=== PATIENT | female | born 1975 | race Caucasian/White ===

== ENCOUNTER 2018-03-13 19:15 | Inpatient (IN) | payer OTHER ==
[~2018-03-13] VITALS: Ht 170.2 cm; Wt 116.1 kg
--- NOTE | 2018-03-13 20:18 | NUR ---
Pt. arrived to the floor with EMS on stretcher. Pt. ambulated to the bed independently. Pt. is A&OX3, addmission assessment complete. IV to lt. forearm patent, with IF fluids and antibiotics infusing. INT to lt. upper arm patent. Pt. reports pain at a 1-2 with movement. Pt. denies need for pain medication at this time. Call light within reach.
[2018-03-13 20:20] VITALS: BP 116/75; PULSE 95; TEMP 99
[2018-03-13 22:28] LABS: HEMOGLOBIN 11.6 g/dl (12.5-16.0); MEAN CELL VOLUME 95 fl (80.0-100.0); MEAN CORPUSCULAR HEMOGLOBIN 33 pg (27.0-31.0); MEAN CORPUSCULAR HGB CONC 35 g/dl (33.0-37.0); MEAN PLATELET VOLUME 11.2 fl (7.4-10.4); PLATELET COUNT 290 K/mm3 (130-400); RED BLOOD COUNT 3.53 M/mm3 (4.10-5.30); REDCELL DISTRIBUTION WIDTH-CV 14.1 % (11.5-14.5)
[2018-03-13 22:32] LABS: HEMATOCRIT 33.6 % (37.0-47.0)
[2018-03-13 22:39] LABS: INR 1.5 (0.8-3.0); PROTHROMBIN TIME 17.5 SECONDS (9.7-12.8)
[2018-03-13 22:44] LABS: BILIRUBIN,TOTAL 0.5 mg/dL (0.0-1.0); CALCIUM 8.1 mg/dL (8.4-10.2); CREATININE, serum 0.49 mg/dL (0.52-1.25); POTASSIUM 3.1 mmol/L (3.4-5.0); TOTAL PROTEIN 6.3 gm/dL (6.4-8.2)
[2018-03-13 23:06] LABS: BAND 30 % (0-10); LYMPHOCYTE 10 % (20.0-51.0); METAMYELOCYTE 2 % (0-0); NEUTROPHILS 54 % (42.0-75.2); PLATELET ESTIMATE NORMAL (NORMAL)
[2018-03-13 23:07] LABS: ANISOCYTOSIS 1+
[2018-03-14] VITALS (15 sets, daily range): BP systolic 95–144; BP diastolic 52–88; PULSE 74–105; TEMP 98.1–100.7
[2018-03-14 05:54] LABS: HEMOGLOBIN 12.1 g/dl (12.5-16.0); MEAN CELL VOLUME 97 fl (80.0-100.0); MEAN CORPUSCULAR HEMOGLOBIN 33 pg (27.0-31.0); MEAN CORPUSCULAR HGB CONC 34 g/dl (33.0-37.0); PLATELET COUNT 311 K/mm3 (130-400); RED BLOOD COUNT 3.71 M/mm3 (4.10-5.30); REDCELL DISTRIBUTION WIDTH-CV 14.2 % (11.5-14.5)
[2018-03-14 06:07] LABS: BILIRUBIN,TOTAL 0.5 mg/dL (0.0-1.0); CALCIUM 8.3 mg/dL (8.4-10.2); CREATININE, serum 0.55 mg/dL (0.52-1.25); POTASSIUM 3.3 mmol/L (3.4-5.0); TOTAL PROTEIN 6.3 gm/dL (6.4-8.2)
[2018-03-14 07:11] LABS: BAND 33 % (0-10); LYMPHOCYTE 10 % (20.0-51.0); METAMYELOCYTE 1 % (0-0); NEUTROPHILS 48 % (42.0-75.2)
[2018-03-14 07:13] LABS: PLATELET ESTIMATE NORMAL (NORMAL)
--- NOTE | 2018-03-14 08:05 | NUR ---
Patient resting in bed. Consent obtained per orders, patient discussed previous night with . Patient Offered hygiene, she wanted to wait until after the procedure, she is a little nervous. One tab percocet for pain control with sip of water, she remains NPO. IVf per orders.José Miguel boateng
--- NOTE | 2018-03-14 09:10 | NUR ---
Patient to Radiology for drain placement. Patient up to the bathroom prior, dark soham urine. Will await her return. [employer] to change her linens.
--- NOTE | 2018-03-14 09:25 | NUR ---
pt laying in prone position on ct table, Monitors applied.
--- NOTE | 2018-03-14 09:52 | NUR ---
large amount of purulent drainage removed by Dr Peralta from pelvic abscess. 170 mls removed from pelvis.
--- NOTE | 2018-03-14 10:51 | NUR ---
Patient has returned from Radiology, Abcess drain to right buttcock to DD. Patient pain 10/10 at this time. Gave dilaudid & percocet. Patient VVS, but chills present. Family at bedside. Clear liquids offered. monitored. José Miguel boateng.
[2018-03-14 11:21] LABS: INR 1.3 (0.8-3.0); PROTHROMBIN TIME 15.1 SECONDS (9.7-12.8)
--- NOTE | 2018-03-14 12:12 | NUR ---
Patient overall reports feeling much better. Pain is better managed. Her family remains attentive at bedside.
--- NOTE | 2018-03-14 13:34 | NUR ---
GURINDER met with the patient and patient's life partner, Joselo, to discuss discharge plan. The patient lives in [place] with her life partner and works at [employer]. She reports independence with ADLs and does not use any DME. The patient does not have a PCP, but states that she would be interested in being set up with one in [place]. The patient is also self pay. GURINDER provided the patient with a list of PCP's in [place] and information on [facility]. She states she receives her medications at [facility] and that she had not had any difficulties obtaining her meds. SW has consulted financial counseling. The patient does not have advanced directives, but she was interested in obtaining the form for DPOA-HC. GURINDER provided. The patient plans to return home with her life partner upon discharge. SW to continue to follow.
[2018-03-14 16:38] LABS: COLLECTION METHOD CLEAN CATCH
[2018-03-14 17:12] LABS: MUCOUS Present /lpf; PH 5 (5-8); URINE APPEARANCE Hazy; URINE BACTERIA Rare /hpf; URINE BILIRUBIN Positive (NEGATIVE); URINE BLOOD 3+ (NEGATIVE); URINE COLOR Amber; URINE GLUCOSE Negative (NEGATIVE); URINE KETONE 1+ (NEGATIVE); URINE LEUKOCYTE ESTERASE Trace (NEGATIVE); URINE NITRATE Negative (NEGATIVE); URINE PROTEIN(semi-quant) 2+ (NEGATIVE); URINE UROBILINOGEN >=4.0 mg/dL (NEGATIVE)
--- NOTE | 2018-03-14 18:35 | NUR ---
Patient resting in bed. Hospitalist team has rounded Early afternoon, orders obtained. K+ replaced per orders & UA to Lab. Patient was up to the bathroom this afternoon & very slowly & steadly got there. Urine remains very dark soham. Abcess drain to DD with purulent output. 2 tabs percocet for pain, Patient feeling better after. Going to try jello & sprite for dinner. Will report off to night nurse
--- NOTE | 2018-03-14 22:25 | NUR ---
Patient has small amount of emesis, thinks it is from the jello. Zofran given at 2233. Patient has drainage tube to right buttock with purulent drainage in the bag. Reports pain in right leg. Lungs with exp. wheezes to upper lobes. Abdomen soft, BS active, on clear liquids. IV fluids to left forearm with noted edema, fluids stopped and IV site dc'd with angiocath intact. Has left upper SL without redness or swelling, IV antibiotics infusing without problem. Refuses SCD's.
--- NOTE | 2018-03-14 22:55 | NUR ---
Medicated with Percocet for pain 4/10 to right leg/buttock.
[2018-03-15 03:10] VITALS: BP 111/61; PULSE 95; TEMP 98.8
--- NOTE | 2018-03-15 05:37 | NUR ---
Up to bathroom with slow steady gait, voids 150cc of dark soham urine. Back to bed with supervision only. Medicated with Percocet 2 tabs for rt leg/buttock pain. IV fluids infusing to left upper arm IV site without redness or swelling.
[2018-03-15 06:49] LABS: HEMATOCRIT 34.9 % (37.0-47.0); HEMOGLOBIN 11.8 g/dl (12.5-16.0); MEAN CELL VOLUME 96 fl (80.0-100.0); MEAN CORPUSCULAR HEMOGLOBIN 32 pg (27.0-31.0); MEAN CORPUSCULAR HGB CONC 34 g/dl (33.0-37.0); MEAN PLATELET VOLUME 11.5 fl (7.4-10.4); PLATELET COUNT 318 K/mm3 (130-400); RED BLOOD COUNT 3.65 M/mm3 (4.10-5.30); REDCELL DISTRIBUTION WIDTH-CV 14.3 % (11.5-14.5)
[2018-03-15 06:56] LABS: INR 1.8 (0.8-3.0); PROTHROMBIN TIME 20.6 SECONDS (9.7-12.8)
[2018-03-15 07:05] LABS: ALBUMIN 2.7 gm/dL (3.5-5.0); BILIRUBIN,TOTAL 1.2 mg/dL (0.0-1.0); CALCIUM 8.2 mg/dL (8.4-10.2); CREATININE, serum 0.56 mg/dL (0.52-1.25); POTASSIUM 3.3 mmol/L (3.4-5.0); TOTAL PROTEIN 5.8 gm/dL (6.4-8.2)
[2018-03-15 07:14] LABS: BAND 24 % (0-10); LYMPHOCYTE 12 % (20.0-51.0); NEUTROPHILS 61 % (42.0-75.2); PLATELET ESTIMATE NORMAL (NORMAL)
[2018-03-15 07:16] LABS: STOMATOCYTE 1+
[2018-03-15 08:40] VITALS: BP 105/57; PULSE 73; TEMP 98.2
--- NOTE | 2018-03-15 10:12 | NUR ---
Patient alert and oriented, answers questions appropriately. Abscess drain in place to right buttock, drain irrigated, purulent drainage noted. C/o inability to manipulate RLE, but no c/o numbness or tingling. Pulses intact to RLE. Homans negative. No other c/o at this time
[2018-03-15 11:48] VITALS: BP 108/56; PULSE 90; TEMP 98.1
[2018-03-15 15:17] VITALS: BP 112/63; PULSE 94; TEMP 99.1
[2018-03-15 19:10] VITALS: BP 97/54; PULSE 95; TEMP 98.9
[2018-03-15 23:58] VITALS: BP 116/59; PULSE 90; TEMP 98.5
--- NOTE | 2018-03-16 01:46 | NUR ---
PATIENT UP TO BATHROOM, VOIDS DARK YELLOW URINE IN THE TOILET, REPORTS SMALL BM 03/15/18. SL TO LEFT UPPER ARM WITHOUT REDNESS OR SWELLING. DRAIN TO RIGHT BUTTOCK WITH BARNETT PURULENT DRAINAGE, 20CC EMPTIED AT THIS TIME. REMAINS ON FULL LIQUID DIET, MOTHER AT BEDSIDE.
[2018-03-16 04:23] VITALS: BP 117/60; PULSE 68; TEMP 98
[2018-03-16 06:12] LABS: HEMOGLOBIN 11.2 g/dl (12.5-16.0); MEAN CELL VOLUME 97 fl (80.0-100.0); MEAN CORPUSCULAR HEMOGLOBIN 32 pg (27.0-31.0); MEAN CORPUSCULAR HGB CONC 34 g/dl (33.0-37.0); MEAN PLATELET VOLUME 11.4 fl (7.4-10.4); PLATELET COUNT 324 K/mm3 (130-400); RED BLOOD COUNT 3.46 M/mm3 (4.10-5.30); REDCELL DISTRIBUTION WIDTH-CV 14.4 % (11.5-14.5)
[2018-03-16 06:15] LABS: INR 1.7 (0.8-3.0); PROTHROMBIN TIME 19.5 SECONDS (9.7-12.8)
[2018-03-16 06:24] LABS: HEMATOCRIT 33.4 % (37.0-47.0)
[2018-03-16 06:36] LABS: ALBUMIN 2.5 gm/dL (3.5-5.0); BILIRUBIN,TOTAL 0.6 mg/dL (0.0-1.0); CALCIUM 8.2 mg/dL (8.4-10.2); CREATININE, serum 0.56 mg/dL (0.52-1.25); POTASSIUM 3.6 mmol/L (3.4-5.0); TOTAL PROTEIN 5.5 gm/dL (6.4-8.2)
[2018-03-16 07:20] LABS: BAND 36 % (0-10); LYMPHOCYTE 11 % (20.0-51.0); NEUTROPHILS 47 % (42.0-75.2)
[2018-03-16 07:22] LABS: PLATELET ESTIMATE NORMAL (NORMAL)
[2018-03-16 07:23] LABS: STOMATOCYTE 1+
[2018-03-16 09:11] VITALS: BP 100/54; PULSE 79; TEMP 98.6
[2018-03-16 11:24] VITALS: BP 112/66; PULSE 94; TEMP 97
--- NOTE | 2018-03-16 11:56 | NUR ---
First visit from the chief of internal medicine. No needs right now.
[2018-03-16 15:53] VITALS: BP 110/70; PULSE 94; TEMP 98.7
--- NOTE | 2018-03-16 18:00 | NUR ---
Patient ambulated twice today with PT. She did not tolerate the second walk as well. Pain well controlled with percocet. Denies nausea. There has only been scant brown drainage to abscess drain today. No other changes at this time. Call light within reach.
[2018-03-16 19:49] VITALS: BP 111/61; PULSE 93; TEMP 99.1
--- NOTE | 2018-03-17 01:22 | NUR ---
Patient remains awake, is NPO for CT scan in AM. Had Percocet 5/325mg 2 tabs at 2300 for rt leg and buttock pain. Patient reports apprehension for CT scan and possible movement of the abscess drain. SL to left upper arm intact. Encouraged patient to rest.
[2018-03-17 03:39] VITALS: BP 106/63; PULSE 73; TEMP 98.2
[2018-03-17 05:57] LABS: HEMOGLOBIN 11.3 g/dl (12.5-16.0); MEAN CELL VOLUME 97 fl (80.0-100.0); MEAN CORPUSCULAR HEMOGLOBIN 32 pg (27.0-31.0); MEAN CORPUSCULAR HGB CONC 33 g/dl (33.0-37.0); MEAN PLATELET VOLUME 11.4 fl (7.4-10.4); PLATELET COUNT 380 K/mm3 (130-400); RED BLOOD COUNT 3.49 M/mm3 (4.10-5.30); REDCELL DISTRIBUTION WIDTH-CV 14.7 % (11.5-14.5)
[2018-03-17 05:58] LABS: HEMATOCRIT 33.8 % (37.0-47.0)
[2018-03-17 06:03] LABS: INR 1.3 (0.8-3.0); PROTHROMBIN TIME 14.5 SECONDS (9.7-12.8)
[2018-03-17 06:06] LABS: ALBUMIN 2.6 gm/dL (3.5-5.0); BILIRUBIN,TOTAL 0.4 mg/dL (0.0-1.0); CALCIUM 8.2 mg/dL (8.4-10.2); CREATININE, serum 0.55 mg/dL (0.52-1.25); POTASSIUM 3.8 mmol/L (3.4-5.0); TOTAL PROTEIN 5.8 gm/dL (6.4-8.2)
[2018-03-17 06:36] LABS: BAND 21 % (0-10); LYMPHOCYTE 21 % (20.0-51.0); METAMYELOCYTE 1 % (0-0); NEUTROPHILS 55 % (42.0-75.2)
[2018-03-17 06:37] LABS: PLATELET ESTIMATE NORMAL (NORMAL); STOMATOCYTE 1+
[2018-03-17 08:02] VITALS: BP 92/49; PULSE 80; TEMP 98.9
--- NOTE | 2018-03-17 10:45 | NUR ---
Patient came back from her procedure and is having increased pain. She has been getting percocet for pain and it helps but she said the pain is worse than before. Offered to call doctor to get more pain medications ordered and she refused. Denies nausea. Drain to dependent drainage with brown purulent drainage. No other changes at this time. Call light within reach.
[2018-03-17 11:06] VITALS: BP 109/60; PULSE 88; TEMP 97.3
[2018-03-17 16:21] VITALS: BP 123/72; PULSE 94; TEMP 98
--- NOTE | 2018-03-17 18:00 | NUR ---
Patient continues to do ok this afternoon. She had a PICC line placed for antibiotics. Patient has terrible veins and her current IV is expiring. Patient's pain is better this aftenoon. She is going to shower when her significant other gets here. No other changes at this time.
[2018-03-17 19:12] VITALS: BP 118/91; PULSE 89; TEMP 97.9
--- NOTE | 2018-03-17 21:00 | NUR ---
Patient resting in bed watching television at this time. Patient requests PRN pain medicaiton for pain/cramping in her right leg. small amount of purulent drainage in abcess drain bag. Patient up with walker and ambulating in hallway with [facility], gait is steady. Patient states that she is planning to take a shower later this evening, will call before so her drain site and PICC can be covered. Patient denies further needs at this time, call light within reach.
--- NOTE | 2018-03-17 22:30 | NUR ---
Patient took a shower with help of family member. During shower part of occlusive covering to dressing over drain site on right buttock failed, distal portion of gauze became saturated and dressing required changing after surgery. Stat lock holding drain came off and could not be replaced due to lack of supplies. Drain was coiled to prevent tension and tegaderm was applied over coil to keep it in place. Gauze and ABD dressing applied to absorb any drainage from insertion site. Patient denied further needs, call light within reach.
[2018-03-18 05:05] VITALS: BP 125/74; PULSE 73; TEMP 98.2
[2018-03-18 05:58] LABS: HEMOGLOBIN 11.2 g/dl (12.5-16.0); MEAN CELL VOLUME 97 fl (80.0-100.0); MEAN CORPUSCULAR HEMOGLOBIN 32 pg (27.0-31.0); MEAN CORPUSCULAR HGB CONC 33 g/dl (33.0-37.0); PLATELET COUNT 425 K/mm3 (130-400); RED BLOOD COUNT 3.48 M/mm3 (4.10-5.30); REDCELL DISTRIBUTION WIDTH-CV 14.9 % (11.5-14.5)
[2018-03-18 06:02] LABS: HEMATOCRIT 33.8 % (37.0-47.0)
[2018-03-18 06:11] LABS: INR 1.2 (0.8-3.0)
[2018-03-18 06:12] LABS: CALCIUM 8.1 mg/dL (8.4-10.2); CREATININE, serum 0.55 mg/dL (0.52-1.25); POTASSIUM 3.9 mmol/L (3.4-5.0)
--- NOTE | 2018-03-18 06:24 | NUR ---
Patient rested well overnight. Administered PRN pain medication per patient request. Patient has denied further needs, call light within reach.
[2018-03-18 07:42] LABS: BAND 27 % (0-10); LYMPHOCYTE 12 % (20.0-51.0); METAMYELOCYTE 2 % (0-0); NEUTROPHILS 57 % (42.0-75.2)
[2018-03-18 07:43] LABS: PLATELET ESTIMATE INCREASED (NORMAL)
[2018-03-18 07:53] VITALS: BP 111/66; PULSE 74; TEMP 98.1
--- NOTE | 2018-03-18 10:41 | NUR ---
Patient sitting up in bed eating a late breakfast. She was nauseated this am. Patient had Percocet early this am without food, discussed the possibilty of this making her nauseated. Zofran prn per orders. Picc line with Iv antibioitcs as ordered. Abcess drain to DD with hernandez/purulent output. Will continue to montior
[2018-03-18 12:01] VITALS: BP 111/66; PULSE 84; TEMP 97.8
--- NOTE | 2018-03-18 15:38 | NUR ---
Patient resting in bed. She is wanting to try and wait longer to take pain medication,wanting to wait until bedtime. Reports improved appetite, looking forward to ordering dinner. Will monitor
--- NOTE | 2018-03-18 16:29 | NUR ---
Bedside report to steph BOLAÑOS
[2018-03-18 17:14] VITALS: BP 125/70; PULSE 78; TEMP 98.2
[2018-03-18 19:04] VITALS: BP 122/75; PULSE 87; TEMP 99.8
--- NOTE | 2018-03-18 20:00 | NUR ---
Patient in bed resting, family at bedside. Alert and oriented x 3. Shift assessment complete. Abcess drain to dependent drainage with minimal amount of purulent drainage. Abcess site, CDI with gauze. Antibiotics infusing to MELINA PICC via pump. Patient states that she will be up and amulating in halls with family member. Denies further needs.
[2018-03-19] VITALS (7 sets, daily range): BP systolic 83–113; BP diastolic 44–66; PULSE 66–81; TEMP 97.4–98.5
--- NOTE | 2018-03-19 05:42 | NUR ---
Patient has rested well through the night. Minimal needs. Independent in room Has been up ambulating in halls with family, steady gait. Denies pain at this time. Drain maintained to dependent drainage with minimal amount of purulent drainage present. Denies further needs at this time.
[2018-03-19 07:14] LABS: HEMOGLOBIN 10.1 g/dl (12.5-16.0); MEAN CELL VOLUME 98 fl (80.0-100.0); MEAN CORPUSCULAR HEMOGLOBIN 32 pg (27.0-31.0); MEAN CORPUSCULAR HGB CONC 32 g/dl (33.0-37.0); MEAN PLATELET VOLUME 10.7 fl (7.4-10.4); PLATELET COUNT 419 K/mm3 (130-400); RED BLOOD COUNT 3.18 M/mm3 (4.10-5.30)
[2018-03-19 07:22] LABS: HEMATOCRIT 31.2 % (37.0-47.0)
[2018-03-19 07:49] LABS: BAND 26 % (0-10); EOSINOPHIL 1 % (0-4); LYMPHOCYTE 12 % (20.0-51.0); METAMYELOCYTE 1 % (0-0); NEUTROPHILS 52 % (42.0-75.2)
[2018-03-19 07:50] LABS: PLATELET ESTIMATE INCREASED (NORMAL); TOXIC GRANULATION PRESENT
[2018-03-19 07:51] LABS: ANISOCYTOSIS 1+
--- NOTE | 2018-03-19 10:56 | NUR ---
Patient laying in bed upon assessment this morning. Patient is pleased that there is a scant amount of drainage in her abcess drain bag. Patient had minimal pain while laying in bed this morning. After walking with physical therapy pain increased. Percocet given. Patient nauseated after getting up to use the bathroom around 0945. Zofran given. No episodes of emesis. Call from pharmacy early in the shift with report of Vancomycin trough being elevated at 53.8. Lab draw time and start time of Vancomycin are close when charted, unsure of possible contamination. Discussed with pharmacist José Antonio, current bag discontinued to err on the side of caution. New trough order for prior to afternoon dose at 1500. Kidney function lab values within normal limits.
[2018-03-19 16:04] LABS: VANCOMYCIN TROUGH 71.95 ug/mL (7.00-20.00)
[2018-03-19 16:23] LABS: CREATININE, serum 2.39 mg/dL (0.52-1.25); POTASSIUM 4.6 mmol/L (3.4-5.0)
--- NOTE | 2018-03-19 19:36 | NUR ---
Second vanc trough continues to be elevated. Care team notified including hospitalist, pharmacist and infectious disease. Vanc discontinued and IV NS started. Patient's pain has been well controlled throughout shift.
--- NOTE | 2018-03-19 20:45 | NUR ---
Patient up independently. Has abscess drain to rt buttock with scant hernandez purulent drainage. Patient reports feeling better. Takes Percocet 5/325mg 2 tabs po now. Has PICC to right arm, IVF infusing without problem.
[2018-03-20 03:26] VITALS: BP 105/91; PULSE 71; TEMP 97.9
[2018-03-20 07:07] LABS: MEAN CELL VOLUME 99 fl (80.0-100.0); MEAN CORPUSCULAR HGB CONC 32 g/dl (33.0-37.0); MEAN PLATELET VOLUME 10.3 fl (7.4-10.4); PLATELET COUNT 376 K/mm3 (130-400); RED BLOOD COUNT 2.94 M/mm3 (4.10-5.30); REDCELL DISTRIBUTION WIDTH-CV 15.1 % (11.5-14.5)
[2018-03-20 07:19] LABS: CALCIUM 7.6 mg/dL (8.4-10.2); CREATININE, serum 3.45 mg/dL (0.52-1.25); POTASSIUM 4.1 mmol/L (3.4-5.0)
[2018-03-20 07:24] LABS: HEMATOCRIT 29.2 % (37.0-47.0); HEMOGLOBIN 9.4 g/dl (12.5-16.0); MEAN CORPUSCULAR HEMOGLOBIN 32 pg (27.0-31.0)
[2018-03-20 08:16] LABS: BAND 15 % (0-10); BASOPHIL 1 % (0-2); EOSINOPHIL 2 % (0-4); LYMPHOCYTE 10 % (20.0-51.0); METAMYELOCYTE 2 % (0-0); NEUTROPHILS 64 % (42.0-75.2)
[2018-03-20 08:17] LABS: PLATELET ESTIMATE NORMAL (NORMAL)
[2018-03-20 08:21] VITALS: BP 104/56; PULSE 66; TEMP 97.4
--- NOTE | 2018-03-20 08:25 | NUR ---
PICC intact right upper arm with sterile dressing change done with insertion site cleansed with chloraprep x 1, skin prep, stat lock, and tegaderm applied. no signs or symptoms of IV complications noted. no concerns voiced. re-wrapped with angella to protect catheter.
--- NOTE | 2018-03-20 10:10 | NUR ---
Ambulated in halls with spouse. Medicated with Percocet for pain. Abscess drain right buttock with scant amounts hernandez drainage in tubing. Afebrile.
[2018-03-20 13:39] VITALS: BP 105/63; PULSE 69; TEMP 98
[2018-03-20 17:25] VITALS: BP 109/68; PULSE 70; TEMP 98.1
--- NOTE | 2018-03-20 18:00 | NUR ---
Afebrile. No c/o pain. IV antibiotic infusing.
[2018-03-20 20:30] VITALS: BP 105/55; PULSE 80; TEMP 98.5
--- NOTE | 2018-03-20 20:30 | NUR ---
Patient reports cramping discomfort to lower abdomen. Has had BM and passed gas. Encouraged ambulation. Medicated with Percocet 2 tabs at this time. Patient has right PICC with IVF infusing at 125cc/hr. Abscess drain to right buttock with scant purulent drainage. Mild edema to right lower leg. Reports fair appetite and drinks ensure at this time.
[2018-03-21 04:04] VITALS: BP 10/58; BP 101/58; PULSE 74; TEMP 98.3
--- NOTE | 2018-03-21 06:44 | NUR ---
Lab work drawn from right PICC. Patient drowsy, no complaints offered at this time.
[2018-03-21 07:10] LABS: MEAN CELL VOLUME 100 fl (80.0-100.0); MEAN CORPUSCULAR HGB CONC 33 g/dl (33.0-37.0); MEAN PLATELET VOLUME 10.4 fl (7.4-10.4); PLATELET COUNT 365 K/mm3 (130-400); RED BLOOD COUNT 2.75 M/mm3 (4.10-5.30); REDCELL DISTRIBUTION WIDTH-CV 15.4 % (11.5-14.5)
[2018-03-21 07:18] LABS: HEMATOCRIT 27.4 % (37.0-47.0); HEMOGLOBIN 8.9 g/dl (12.5-16.0); MEAN CORPUSCULAR HEMOGLOBIN 32 pg (27.0-31.0)
[2018-03-21 07:21] LABS: CALCIUM 7.9 mg/dL (8.4-10.2); POTASSIUM 4.6 mmol/L (3.4-5.0)
[2018-03-21 07:43] VITALS: BP 111/64; PULSE 71; TEMP 98.1
[2018-03-21 07:44] LABS: CREATININE, serum 4.74 mg/dL (0.52-1.25)
[2018-03-21 07:45] LABS: VANCOMYCIN,RANDOM 59.95 ug/mL
[2018-03-21 07:52] LABS: BAND 6 % (0-10); LYMPHOCYTE 16 % (20.0-51.0); NEUTROPHILS 73 % (42.0-75.2); PLATELET ESTIMATE NORMAL (NORMAL)
[2018-03-21 07:54] LABS: HYPOCHROMIA 1+; STOMATOCYTE 1+
[2018-03-21 12:28] VITALS: BP 111/63; PULSE 80; TEMP 98
[2018-03-21 13:30] LABS: COLLECTION METHOD CLEAN CATCH
[2018-03-21 13:39] LABS: PH 5 (5-8); SQUAMOUS EPITHELIAL 20-50 /hpf; URINE APPEARANCE Cloudy; URINE BACTERIA None Seen /hpf; URINE BILIRUBIN Negative (NEGATIVE); URINE BLOOD Negative (NEGATIVE); URINE COLOR Yellow; URINE GLUCOSE Negative (NEGATIVE); URINE KETONE Negative (NEGATIVE); URINE LEUKOCYTE ESTERASE Negative (NEGATIVE); URINE NITRATE Negative (NEGATIVE); URINE PROTEIN(semi-quant) 1+ (NEGATIVE); URINE RBC 0-2 /hpf; URINE UROBILINOGEN Negative (NEGATIVE)
[2018-03-21 14:19] LABS: CREATININE, serum 5.03 mg/dL (0.52-1.25)
[2018-03-21 15:24] VITALS: BP 110/63; PULSE 80; TEMP 97.5
--- NOTE | 2018-03-21 18:00 | NUR ---
Medicated for nausea and pain in AM. Complained of cramping abdominal pain at times. Warm moist pack to abdomen per request. Ambulatory in halls by self. Afebrile. Appetite poor. No measurable drainage from abscess drain. Nephrology consult done.
[2018-03-21 20:12] VITALS: BP 123/62; PULSE 94; TEMP 98.2
--- NOTE | 2018-03-21 23:44 | NUR ---
Medicated with Percocet 2 tabs for rt leg/buttock pain. Abscess drain to right buttock with scant purulent drainage. Voiding clear, yellow urine. Has ambulated in hallway x2 this shift. IVF infusing per Rt PICC. Edema continues to right lower leg, wearing SCD to right leg only.
[2018-03-21 23:46] VITALS: BP 116/67; PULSE 87; TEMP 99.6
[2018-03-22 03:25] VITALS: BP 115/64; PULSE 71; TEMP 97.4
[2018-03-22 05:46] LABS: MEAN CELL VOLUME 99 fl (80.0-100.0); MEAN CORPUSCULAR HGB CONC 32 g/dl (33.0-37.0); MEAN PLATELET VOLUME 10.4 fl (7.4-10.4); PLATELET COUNT 404 K/mm3 (130-400); RED BLOOD COUNT 2.66 M/mm3 (4.10-5.30); REDCELL DISTRIBUTION WIDTH-CV 15.6 % (11.5-14.5)
[2018-03-22 05:59] LABS: HEMATOCRIT 26.2 % (37.0-47.0); HEMOGLOBIN 8.5 g/dl (12.5-16.0); MEAN CORPUSCULAR HEMOGLOBIN 32 pg (27.0-31.0)
[2018-03-22 06:13] LABS: CREATININE, serum 5.68 mg/dL (0.52-1.25)
--- NOTE | 2018-03-22 06:33 | NUR ---
Notified Dr Rosas of patient's CR 5.68, new order for Kidney US today.
[2018-03-22 07:00] LABS: BAND 5 % (0-10); EOSINOPHIL 3 % (0-4); LYMPHOCYTE 10 % (20.0-51.0); NEUTROPHILS 78 % (42.0-75.2); PLATELET ESTIMATE INCREASED (NORMAL)
[2018-03-22 07:01] LABS: HYPOCHROMIA 1+
[2018-03-22 07:12] VITALS: BP 108/61; PULSE 71; TEMP 97.4
--- NOTE | 2018-03-22 09:11 | NUR ---
PATIENT UP TO RESTROOM, VOIDED WITHOUT DIFFICULTY. WAS OBSERVED AMBULATING IN HALLWAY. PATIENT IS CURRENTLY HAVING CT SCAN.
[2018-03-22 11:42] VITALS: BP 123/67; PULSE 92; TEMP 97.8
[2018-03-22 13:26] LABS: COMPLEMENT-C3 124 mg/dL (79-152); COMPLEMENT-C4 20 mg/dL (18-55)
[2018-03-22 15:50] VITALS: BP 112/49; PULSE 80; TEMP 98
--- NOTE | 2018-03-22 16:39 | NUR ---
Patient sitting up in bed, her brother at bedside. Doctors rounded earlier in the day. Plan of care reviewed. Abcess drain was flushed with NS per order & abcess drain redressed with fresh drain sponge & tegaderm. Picc to INT per order. Strict I&O. Patient has not had good response to lasix. Urine output remains pale yellow. Will continue to monitor.
--- NOTE | 2018-03-22 17:40 | NUR ---
Patient up walking in halls with brother, tolerating well. States pain is 1-2/10. Did eat some pudding when taking her medications, said she might order a room tray around 1800, if not she had crackers, vanilla wafers and an ensure available to her in the nutrition room.
--- NOTE | 2018-03-22 19:23 | NUR ---
Bedside report to Zainab BOLAÑOS. Patient sitting up playing cards with her brother
--- NOTE | 2018-03-22 21:00 | NUR ---
Upon assessment patient is resting in bed, visiting with her brother. Patient denies significant pain, requesting just 1 percocet to prevent her from having pain. Abcess drain to right buttock, scant purulent drainage present. PICC to right upper arm INTd. Patient has significant edema to bilateral lower extremeties, skin is tight and shiny, pitting edema present. Patient voided 100 ml of pale yellow urine into hat. Per report patients urine output is very low, creatnine is critical. Nepthrology is consulted. No other needs reported/observed.
[2018-03-23 00:59] VITALS: BP 110/64; PULSE 81; TEMP 98.6
[2018-03-23 04:23] VITALS: BP 100/80; PULSE 87; TEMP 98.1
[2018-03-23 06:02] LABS: MEAN CELL VOLUME 98 fl (80.0-100.0); MEAN CORPUSCULAR HGB CONC 32 g/dl (33.0-37.0); MEAN PLATELET VOLUME 10.4 fl (7.4-10.4); PLATELET COUNT 431 K/mm3 (130-400); RED BLOOD COUNT 2.54 M/mm3 (4.10-5.30); REDCELL DISTRIBUTION WIDTH-CV 15.2 % (11.5-14.5)
[2018-03-23 06:04] LABS: HEMOGLOBIN 8.1 g/dl (12.5-16.0); MEAN CORPUSCULAR HEMOGLOBIN 32 pg (27.0-31.0)
[2018-03-23 06:15] LABS: CALCIUM 8.1 mg/dL (8.4-10.2); PHOSPHOROUS 8.5 mg/dL (2.5-4.5); POTASSIUM 4.8 mmol/L (3.4-5.0)
[2018-03-23 06:17] LABS: CREATININE, serum 6.5 mg/dL (0.52-1.25)
--- NOTE | 2018-03-23 06:58 | NUR ---
Dr. Rosas notified of increasing creatnine. Creatnine was 6.5 today. Electrolytes WNL. No new orders at this time.
[2018-03-23 07:04] LABS: BAND 12 % (0-10); BASOPHIL 1 % (0-2); EOSINOPHIL 1 % (0-4); LYMPHOCYTE 15 % (20.0-51.0); METAMYELOCYTE 3 % (0-0); NEUTROPHILS 61 % (42.0-75.2)
[2018-03-23 07:05] LABS: PLATELET ESTIMATE NORMAL (NORMAL)
--- NOTE | 2018-03-23 07:50 | NUR ---
Patient report given to MIKY Nagy.
[2018-03-23 08:43] VITALS: BP 111/65; PULSE 71; TEMP 97.4
[2018-03-23 13:00] VITALS: BP 119/70; PULSE 83; TEMP 97.5
[2018-03-23 17:03] VITALS: BP 99/53; PULSE 72; TEMP 97.8
--- NOTE | 2018-03-23 18:00 | NUR ---
Patient has been doing well today. She has been up several times walking in the hallways. Her urine output picked up but only by 200ml this shift. [place] is controlling her pain well. Drain flushed with saline, patient stated it hurt when flushing. No other changes at this time. Call light within reach.
[2018-03-23 19:20] VITALS: BP 127/76; PULSE 76; TEMP 98.1
--- NOTE | 2018-03-23 20:00 | NUR ---
Patient in bed resting. Family at bedside. Shift assessment complete. Alert and oriented x 3. Wound drain to dependent drainage with moderate amount of purulent drainage present. Gauze to right buttock, CDI. Denies pain at this time. Has been up ambulating in [place], steady gait. Denies further needs.
[2018-03-24 03:22] VITALS: BP 111/58; PULSE 78; TEMP 98.2
[2018-03-24 06:03] LABS: MEAN CELL VOLUME 98 fl (80.0-100.0); MEAN CORPUSCULAR HGB CONC 32 g/dl (33.0-37.0); MEAN PLATELET VOLUME 10.2 fl (7.4-10.4); PLATELET COUNT 461 K/mm3 (130-400); RED BLOOD COUNT 2.45 M/mm3 (4.10-5.30); REDCELL DISTRIBUTION WIDTH-CV 15.3 % (11.5-14.5)
[2018-03-24 06:04] LABS: HEMOGLOBIN 7.7 g/dl (12.5-16.0); MEAN CORPUSCULAR HEMOGLOBIN 31 pg (27.0-31.0)
[2018-03-24 06:15] LABS: CALCIUM 7.7 mg/dL (8.4-10.2); POTASSIUM 4.8 mmol/L (3.4-5.0)
[2018-03-24 06:17] LABS: CREATININE, serum 7.29 mg/dL (0.52-1.25)
--- NOTE | 2018-03-24 06:50 | NUR ---
Veronica has rested well through the night. Denies pain. Abcess drain to right buttock to dependent drainage with purulent drainage present. Denies further needs at this time. Has been up ambulating in halls, steady gait. Denies further needs at this time. Will report off to day shift.
[2018-03-24 07:27] VITALS: BP 98/54; PULSE 68; TEMP 97.8
[2018-03-24 07:50] LABS: BAND 11 % (0-10); EOSINOPHIL 2 % (0-4); LYMPHOCYTE 12 % (20.0-51.0); METAMYELOCYTE 1 % (0-0); NEUTROPHILS 68 % (42.0-75.2)
[2018-03-24 07:51] LABS: PLATELET ESTIMATE INCREASED (NORMAL)
--- NOTE | 2018-03-24 10:53 | NUR ---
SW attended clinical rounds. The hospitalist discussed the patient being in the hospital until her infection is resolved and under control. The patient still plans to return home upon discharge. SW to continue to follow.
[2018-03-24 12:00] VITALS: BP 104/63; PULSE 78; TEMP 98.1
[2018-03-24 15:59] VITALS: BP 114/56; PULSE 83; TEMP 98
--- NOTE | 2018-03-24 18:00 | NUR ---
Patient has been up walking in the hallways. She has been having increased pain today. She did not want IV pain medication earlier when she was NPO and has had norco once this shift. No other changes at this time. Call light within reach. Drain flushed twice today.
[2018-03-24 19:10] VITALS: BP 113/59; PULSE 80; TEMP 98.5
--- NOTE | 2018-03-24 20:00 | NUR ---
Patient in bed resting, family at bedside. Shift assesssment complete. PICC line to right upper arm without complications. Abcess drain to right buttock with minimal amount of purulent drainage present. Has been up ambulating in halls. Denies further needs at this time.
[2018-03-24 21:27] LABS: C-ANCA 10 U/mL (0-99)
[2018-03-25 03:17] VITALS: BP 92/45; PULSE 80; TEMP 98.2
--- NOTE | 2018-03-25 06:01 | NUR ---
Patient has rested well through the night. Minimal needs. Independent in room. Has been up ambulating in halls. Scant drainage present in abcess drain. Denies pain this AM. SCDs maintained to BLE through the night. Denies further needs at this time. Will report off to day shift.
[2018-03-25 07:04] VITALS: BP 93/48; PULSE 75; TEMP 97.5
[2018-03-25 07:47] LABS: BASO % 0.2 % (0.0-2.0); EOS # 0.2 (0.0-0.7); EOS % 1.4 % (0-4.0); GRAN # 9.5 (1.4-6.5); GRAN % 75.6 % (42.2-75.2); LYMPH # 1.9 (1.2-3.4); LYMPH % 14.9 % (20.0-51.0); MEAN CELL VOLUME 98 fl (80.0-100.0); MEAN CORPUSCULAR HGB CONC 32 g/dl (33.0-37.0); MEAN PLATELET VOLUME 9.9 fl (7.4-10.4); MONO # 0.9 (0.1-0.6); MONO % 6.8 % (1.7-9.3); PLATELET COUNT 535 K/mm3 (130-400); RED BLOOD COUNT 2.52 M/mm3 (4.10-5.30); REDCELL DISTRIBUTION WIDTH-CV 15.6 % (11.5-14.5)
[2018-03-25 07:50] LABS: HEMATOCRIT 24.7 % (37.0-47.0); MEAN CORPUSCULAR HEMOGLOBIN 32 pg (27.0-31.0)
[2018-03-25 08:00] LABS: CALCIUM 8.1 mg/dL (8.4-10.2); MAGNESIUM 1.8 mg/dL (1.6-2.3); POTASSIUM 5.4 mmol/L (3.4-5.0)
[2018-03-25 08:03] LABS: PHOSPHOROUS 10.8 mg/dL (2.5-4.5)
[2018-03-25 08:04] LABS: CREATININE, serum 8.57 mg/dL (0.52-1.25)
[2018-03-25 11:19] VITALS: BP 115/70; PULSE 86; TEMP 98.7
[2018-03-25 11:51] LABS: INR 1.1 (0.8-3.0); PROTHROMBIN TIME 12.4 SECONDS (9.7-12.8)
[2018-03-25 15:50] VITALS: BP 110/56; PULSE 88; TEMP 98.1
--- NOTE | 2018-03-25 17:00 | NUR ---
Patient is sitting up in bed. Minimal complaints of pain. No complaints of nausea. Was changing the dressing to her drain but the drain had been pulled out. She stated it felt different since last night. When I flushed the drain this am, she stated there was no pain but when the previous nurse flushed it there was pain to her right buttock. When the dressing was removed, there was purulent drainage coming from the poke site. Notified Dr Rodriguez, he ordered to leave drain out at this time and to changed the dressing as needed. Discussed this with the patient. She was worried about having the drain replaced. Gauze dressing and tegaderm placed over drain site. The edges to the poke site are intact, no reddness noted to the area. No other changes at this time. Call light within reach.
--- NOTE | 2018-03-25 19:00 | NUR ---
Patient has ambulated several times in the hallway today. Her pain has been well controlled with percocet. She knows she can not eat or drink after midnight. She is very worried about getting the dialysis catheter placed and getting dialysis tomorrow. Explained that getting the excess fluid out will help her feel better. She is starting to have edema to her feet. No other changes at this time. Call light within reach.
[2018-03-25 19:27] VITALS: BP 164/73; PULSE 61; TEMP 98.3
[2018-03-25 19:30] VITALS: BP 128/73; PULSE 81; TEMP 98.2
[2018-03-26] VITALS (15 sets, daily range): BP systolic 97–134; BP diastolic 44–83; PULSE 80–95; TEMP 97.2–98.4
--- NOTE | 2018-03-26 07:30 | NUR ---
Patient is cleaning up for surgery. Her drain site was oozing hernandez purulent drainage. The dressing was completely saturated. Used an ABD pad to absorb the rest that was draining out. Placed a foam dressing to the site to absorb the drainage. She is getting ready to go down for her dialysis catheter placement. No other changes at this time. Consent on chart for the procedure.
[2018-03-26 09:57] LABS: BASO % 0.3 % (0.0-2.0); EOS # 0.1 (0.0-0.7); GRAN # 10.2 (1.4-6.5); LYMPH # 1.7 (1.2-3.4); LYMPH % 13.1 % (20.0-51.0); MEAN CELL VOLUME 98 fl (80.0-100.0); MEAN CORPUSCULAR HGB CONC 32 g/dl (33.0-37.0); MEAN PLATELET VOLUME 9.8 fl (7.4-10.4); MONO # 0.9 (0.1-0.6); MONO % 6.5 % (1.7-9.3); PLATELET COUNT 526 K/mm3 (130-400); RED BLOOD COUNT 2.61 M/mm3 (4.10-5.30); REDCELL DISTRIBUTION WIDTH-CV 15.6 % (11.5-14.5)
[2018-03-26 09:59] LABS: HEMATOCRIT 25.6 % (37.0-47.0); HEMOGLOBIN 8.3 g/dl (12.5-16.0); MEAN CORPUSCULAR HEMOGLOBIN 32 pg (27.0-31.0)
[2018-03-26 10:05] LABS: ALBUMIN 2.5 gm/dL (3.5-5.0); BILIRUBIN,TOTAL 0.2 mg/dL (0.0-1.0); CALCIUM 8.4 mg/dL (8.4-10.2); MAGNESIUM 1.7 mg/dL (1.6-2.3); POTASSIUM 5.4 mmol/L (3.4-5.0); TOTAL PROTEIN 5.5 gm/dL (6.4-8.2)
[2018-03-26 10:11] LABS: CREATININE, serum 9.47 mg/dL (0.52-1.25); PHOSPHOROUS 9.9 mg/dL (2.5-4.5)
--- NOTE | 2018-03-26 18:00 | NUR ---
Patient was not able to get dialysis completed today. She is to have ativan tomorrow before dialysis. Patient has been resting since getting back. She has ambulated a couple times in the hallways. She is tolerating her diet well. No other changes at this time. Call light within reach.
--- NOTE | 2018-03-26 21:30 | NUR ---
DRESSING CHANGED TO RT BUTTOCK. DRAINAGE WAS THICK, BARNETT IN COLOR. NO NOTABLE FOUL ODOR. PT TOOK 2 PERCOCET AT H.S.
[2018-03-27 05:09] VITALS: BP 122/61; PULSE 80; TEMP 98.2
[2018-03-27 07:23] VITALS: BP 116/59; PULSE 73; TEMP 97.5
--- NOTE | 2018-03-27 08:00 | NUR ---
PICC intact right upper arm. With sterile technique right upper arm PICC dressing change done with insertion site cleansed with ChloraPrep 1, skin prep, StatLock, and Tegaderm applied. Signs or symptoms of IV complications noted. No concerns voiced. Arm wrapped with Jovany to protect catheter.
--- NOTE | 2018-03-27 10:28 | NUR ---
Patient to room 18 for dialysis. Darryl is working per patient. Mily BOLAÑOS will care for her in dialysis. Will await her return, fresh linens while she is gone.
--- NOTE | 2018-03-27 11:09 | NUR ---
Patient in dialysis chair. Called by nurse Minor in Dialysis. chairside, per his verbal order 1 mg Iv dilaudid given, he ordered to wait 5 minutes and give second mg of dilaudid. Patient continues to report pain, abdominal cramping. Patient on vitals machine per dialysis & tachy & hypertension. Nurse Minor to continue monitor patient and will call with any further concerns of patient needs.
[2018-03-27 11:11] LABS: MEAN CELL VOLUME 97 fl (80.0-100.0); MEAN CORPUSCULAR HGB CONC 32 g/dl (33.0-37.0); MEAN PLATELET VOLUME 9.6 fl (7.4-10.4); PLATELET COUNT 449 K/mm3 (130-400); RED BLOOD COUNT 2.82 M/mm3 (4.10-5.30); REDCELL DISTRIBUTION WIDTH-CV 15.5 % (11.5-14.5)
[2018-03-27 11:18] LABS: ALBUMIN 2.2 gm/dL (3.5-5.0); CALCIUM 8.2 mg/dL (8.4-10.2); PHOSPHOROUS 7.4 mg/dL (2.5-4.5); POTASSIUM 5.1 mmol/L (3.4-5.0)
[2018-03-27 11:21] LABS: HEMATOCRIT 27.4 % (37.0-47.0); HEMOGLOBIN 8.8 g/dl (12.5-16.0); MEAN CORPUSCULAR HEMOGLOBIN 31 pg (27.0-31.0)
[2018-03-27 11:25] LABS: CREATININE, serum 8.49 mg/dL (0.52-1.25)
[2018-03-27 11:52] LABS: BAND 27 % (0-10); LYMPHOCYTE 17 % (20.0-51.0); METAMYELOCYTE 1 % (0-0); MYELOCYTE 1 % (0-0); NEUTROPHILS 54 % (42.0-75.2); PLATELET ESTIMATE INCREASED (NORMAL)
[2018-03-27 11:53] LABS: ANISOCYTOSIS 1+; HYPOCHROMIA 1+
--- NOTE | 2018-03-27 13:03 | NUR ---
Patient returned from Dialysis via wheelchair. Doing well. Patient going to recover from dialysis and then order lunch & get cleaned up today.
[2018-03-27 14:12] LABS: HEPATITIS B CORE AB,TOTAL Negative (()); HEPATITIS B SURFACE ANTIBODY <2.0 (()); HEPATITIS B SURFACE ANTIGEN Negative (Negative); HEPATITIS C VIRUS ANTIBODY Negative (Negative)
--- NOTE | 2018-03-27 14:49 | NUR ---
Patient sitting up in bed eating. Her family at bedside. Pain remains managed. Will monitor.
[2018-03-27 16:08] VITALS: BP 95/59; PULSE 88; TEMP 98.4
[2018-03-27 19:30] VITALS: BP 133/73; PULSE 79; TEMP 98.2
--- NOTE | 2018-03-27 20:00 | NUR ---
Patient in bed resting, family at bedside. Alert and oriented x 3, Shift assessment complete. PICC to MELINA without complications. Dialysis catheter to left IJ, gauze dressing CDI. Right buttock dressing with purulent drainage, redressed with ABD and foam tape. Edema +2 to BLE noted. Denies pain or further needs at this time.
[2018-03-28 03:47] VITALS: BP 117/55; PULSE 79; TEMP 98.2
--- NOTE | 2018-03-28 06:17 | NUR ---
Patient has rested well through the night. Minimal needs. Independent in room. Family at bedside through the night. Denies pain or further needs at this time. Will report off to day shift.
[2018-03-28 07:52] VITALS: BP 114/72; PULSE 69; TEMP 97.8
[2018-03-28 08:49] LABS: BASO % 0.4 % (0.0-2.0); EOS # 0.3 (0.0-0.7); EOS % 2.7 % (0-4.0); GRAN # 6.2 (1.4-6.5); GRAN % 67.3 % (42.2-75.2); LYMPH # 1.8 (1.2-3.4); LYMPH % 19.2 % (20.0-51.0); MEAN CELL VOLUME 99 fl (80.0-100.0); MEAN CORPUSCULAR HGB CONC 32 g/dl (33.0-37.0); MEAN PLATELET VOLUME 9.9 fl (7.4-10.4); MONO # 0.8 (0.1-0.6); PLATELET COUNT 458 K/mm3 (130-400); RED BLOOD COUNT 2.36 M/mm3 (4.10-5.30); REDCELL DISTRIBUTION WIDTH-CV 15.9 % (11.5-14.5)
[2018-03-28 08:50] LABS: HEMOGLOBIN 7.4 g/dl (12.5-16.0); MEAN CORPUSCULAR HEMOGLOBIN 31 pg (27.0-31.0)
[2018-03-28 08:51] LABS: HEMATOCRIT 23.3 % (37.0-47.0)
[2018-03-28 08:57] LABS: ALBUMIN 2.3 gm/dL (3.5-5.0); PHOSPHOROUS 7.9 mg/dL (2.5-4.5); POTASSIUM 5.5 mmol/L (3.4-5.0)
[2018-03-28 09:02] LABS: CREATININE, serum 8.87 mg/dL (0.52-1.25)
--- NOTE | 2018-03-28 10:09 | NUR ---
Patient has been sleeping all morning. Did wake up for lab draw this am. Stated she stayed up until after midnight for New Year's celebration with her family. Family stated that they would have her notify nurising on her call light when she wakes.
[2018-03-28 11:58] VITALS: BP 110/52; PULSE 81; TEMP 98.2
[2018-03-28 12:57] LABS: IRON,SERUM 14 ug/dL (35-150)
[2018-03-28 13:06] LABS: TOTAL IRON BINDING CAPACITY 159 ug/dL (265-497)
[2018-03-28 13:33] LABS: FERRITIN 107 ng/mL (6-137)
--- NOTE | 2018-03-28 14:29 | NUR ---
Dr. Meyers rounded today, medications ordered, reviewed and administered. Patient had questions regarding new medications and prinited material provided to patient to review.
[2018-03-28 15:33] VITALS: BP 106/60; PULSE 86; TEMP 98.7
--- NOTE | 2018-03-28 18:54 | NUR ---
Patient resting in bed. Dinner ordered. She has ambulated the halls today. She is trying to remains in positive spirits today. Made her aware of dialysis at 6 am tmrw morning. Right buttocks prior drain site continues to drain purulent output. dressing changed today. Picc to Rue. IVf per orders. Bedside report to Chapito BOLAÑOS
--- NOTE | 2018-03-28 20:00 | NUR ---
Patient in bed resting, mother at bedside. Alert and oriented x 3. Shift assessment complete. Denies pain at this time. Dressing to right buttock with moderate amount of purulent drainage present. Dressing changed, abd and tape. Denies pain at this time. States she would like to ambulate and will call if she needs anything. Denies further needs.
[2018-03-29 00:58] VITALS: BP 102/40; PULSE 77; TEMP 98.4
[2018-03-29 04:39] VITALS: BP 101/39; PULSE 69; TEMP 98
[2018-03-29 06:02] LABS: HEMATOCRIT 23.6 % (37.0-47.0); HEMOGLOBIN 7.5 g/dl (12.5-16.0); MEAN CELL VOLUME 98 fl (80.0-100.0); MEAN CORPUSCULAR HEMOGLOBIN 31 pg (27.0-31.0); MEAN CORPUSCULAR HGB CONC 32 g/dl (33.0-37.0); MEAN PLATELET VOLUME 9.7 fl (7.4-10.4); PLATELET COUNT 412 K/mm3 (130-400); REDCELL DISTRIBUTION WIDTH-CV 15.5 % (11.5-14.5)
[2018-03-29 06:11] LABS: ALBUMIN 2.4 gm/dL (3.5-5.0); CALCIUM 8.3 mg/dL (8.4-10.2); POTASSIUM 5.6 mmol/L (3.4-5.0)
[2018-03-29 06:20] LABS: CREATININE, serum 9.17 mg/dL (0.52-1.25)
--- NOTE | 2018-03-29 06:40 | NUR ---
Patient has rested well through the night. Minimal needs. Premedicated for dialysis. Denies pain at this time. Denies further needs. Patient down to dialysis by wheelchair. Will report off to day shift.
--- NOTE | 2018-03-29 11:00 | NUR ---
Patient is resting at this time. She stated feeling very tired after dialysis. She did not sleep well in anticipation of getting dialysis today. No other changes at this time. Call light within reach.
[2018-03-29 11:06] LABS: BAND 9 % (0-10); EOSINOPHIL 2 % (0-4); HYPOCHROMIA 2+; LYMPHOCYTE 22 % (20.0-51.0); NEUTROPHILS 61 % (42.0-75.2); PLATELET ESTIMATE INCREASED (NORMAL)
[2018-03-29 11:35] VITALS: BP 122/62; PULSE 81; TEMP 98
--- NOTE | 2018-03-29 14:19 | NUR ---
SW met with patient during clinical rounding. Patient will be needing dialysis at discharge but is still planning on dc home with family support. SW will continue to follow to assist in DC planning.
[2018-03-29 15:16] VITALS: BP 106/49; PULSE 74; TEMP 97.4
--- NOTE | 2018-03-29 17:00 | NUR ---
Dressing changed to right buttock. Patient tolerated well. No drainage noted at this time from site. The dressing had moderate amount of greenish/hernandez purulent drainage. The ABD pad was not saturated. No other changes at this time. Call light within reach. No complaints of pain today. Patient had some nausea earlier but zofran was given and it helped. Her mother is staying the night with her again.
--- NOTE | 2018-03-29 20:45 | NUR ---
Pt. sitting up in bed with mother at bedside. Pt. is A&OX3, assessment complete. PICC to rt. upper arm with IV fluids infusing per orders. Pt. denies pain. Dressing to rt. buttock CDI. Pt. denies further needs at this time. Call light within reach.
[2018-03-30] VITALS (9 sets, daily range): BP systolic 97–148; BP diastolic 48–84; PULSE 66–87; TEMP 97.4–98.5
[2018-03-30 07:33] LABS: MEAN CELL VOLUME 100 fl (80.0-100.0); MEAN CORPUSCULAR HGB CONC 31 g/dl (33.0-37.0); MEAN PLATELET VOLUME 10.1 fl (7.4-10.4); PLATELET COUNT 360 K/mm3 (130-400); RED BLOOD COUNT 2.24 M/mm3 (4.10-5.30); REDCELL DISTRIBUTION WIDTH-CV 15.8 % (11.5-14.5)
[2018-03-30 07:34] LABS: HEMATOCRIT 22.3 % (37.0-47.0); MEAN CORPUSCULAR HEMOGLOBIN 31 pg (27.0-31.0)
[2018-03-30 07:44] LABS: INR 1.1 (0.8-3.0); PROTHROMBIN TIME 12.1 SECONDS (9.7-12.8)
[2018-03-30 07:57] LABS: ALBUMIN 2.3 gm/dL (3.5-5.0); CALCIUM 8.3 mg/dL (8.4-10.2); PHOSPHOROUS 7.1 mg/dL (2.5-4.5); POTASSIUM 5.4 mmol/L (3.4-5.0)
[2018-03-30 07:58] LABS: BAND 33 % (0-10); BASOPHIL 1 % (0-2); EOSINOPHIL 4 % (0-4); MYELOCYTE 1 % (0-0); NEUTROPHILS 36 % (42.0-75.2)
[2018-03-30 07:59] LABS: LYMPHOCYTE 20 % (20.0-51.0); PLATELET ESTIMATE NORMAL (NORMAL)
[2018-03-30 08:07] LABS: CREATININE, serum 7.9 mg/dL (0.52-1.25)
--- NOTE | 2018-03-30 10:16 | NUR ---
William with [employer] met with patient and filled out a medicaid karolina that he said he will submit today. FFA karolina is waiting on her life partners information that she should be able to get when he comes in today.
[2018-03-30 17:55] LABS: ALBUMIN 2.6 gm/dL (3.5-5.0); CALCIUM 8.4 mg/dL (8.4-10.2); PHOSPHOROUS 6.8 mg/dL (2.5-4.5); POTASSIUM 5.2 mmol/L (3.4-5.0)
--- NOTE | 2018-03-30 18:00 | NUR ---
Patient was feeling ok today. She is having a hard time with the new that she has to have surgery tomorrow. She started drinking her golytly. Explained how she has to drink it. Explained she can only have clear liquids now and is NPO after midnight. Her mother will be staying the night. No other changes at this time. Call light within reach.
[2018-03-30 18:16] LABS: CREATININE, serum 8.08 mg/dL (0.52-1.25)
[2018-03-31] VITALS (13 sets, daily range): BP systolic 99–152; BP diastolic 58–86; PULSE 72–87; TEMP 98–98.5
--- NOTE | 2018-03-31 05:54 | NUR ---
Pt slept some during the night, Pt received 1 unit of blood without noticable side effects, family spent the night in the room with the Pt. no C/O pain, VS ahve been stable.
[2018-03-31 06:47] LABS: BASO # 0.1 (0.0-0.2); BASO % 0.6 % (0.0-2.0); EOS # 0.3 (0.0-0.7); GRAN # 5.2 (1.4-6.5); GRAN % 65.7 % (42.2-75.2); LYMPH # 1.6 (1.2-3.4); LYMPH % 20.6 % (20.0-51.0); MEAN CORPUSCULAR HGB CONC 33 g/dl (33.0-37.0); MEAN PLATELET VOLUME 10.4 fl (7.4-10.4); MONO # 0.6 (0.1-0.6); MONO % 7.8 % (1.7-9.3); PLATELET COUNT 349 K/mm3 (130-400); RED BLOOD COUNT 2.74 M/mm3 (4.10-5.30); REDCELL DISTRIBUTION WIDTH-CV 15.8 % (11.5-14.5)
[2018-03-31 06:52] LABS: ALBUMIN 2.5 gm/dL (3.5-5.0); CALCIUM 8.3 mg/dL (8.4-10.2); PHOSPHOROUS 7.1 mg/dL (2.5-4.5); POTASSIUM 5.1 mmol/L (3.4-5.0)
[2018-03-31 06:56] LABS: HEMATOCRIT 25.8 % (37.0-47.0); HEMOGLOBIN 8.6 g/dl (12.5-16.0); MEAN CELL VOLUME 94 fl (80.0-100.0); MEAN CORPUSCULAR HEMOGLOBIN 31 pg (27.0-31.0)
[2018-03-31 07:17] LABS: CREATININE, serum 8.37 mg/dL (0.52-1.25)
--- NOTE | 2018-03-31 09:55 | NUR ---
Patient has been sleepinga all morning. letting her rest. will continue to montior
--- NOTE | 2018-03-31 12:58 | NUR ---
Patient ready for surgery. Patient up to the bathroom & voided. Patient assisted with hygiene & fresh linens. She has remained NPO. Patient tearful,anxious about surgery, worried about having to go to ICU. Tried to reassure her and comfort her. Her supportive mother at bedside. Patient prior right buttock drain site with no active drainage noted to prior dressing. Patient continued to have her Dialysis cathetor to LIJ. PiCC to RUE. Ns to gravity to slow drip. Dr. Bear rounded. José Miguel boateng.
--- NOTE | 2018-03-31 14:04 | NUR ---
Patient to OR with Armando mejia. Report called to [facility]. Patient family to surgery waiting room. Patient seems in good spirits. Will await her return.
--- NOTE | 2018-03-31 20:00 | NUR ---
Patient in bed resting; alert and oriented x3. Family at bedside. Shift assessment complete. BLE edema noted. Picc to MELINA without complications. Dialysis catheter to left IJ with gauze dressing, CDI. Midline incision with gauze CDI. Lap site x 1, CDI. ISABELL drain with moderate amount of blood tinged drainage present. Colostomy with applicance intact. SCDs to bilateral lower extremities. Epidural intact. Denies pain at this time. Denies further needs at this time.
[2018-04-01 00:19] VITALS: BP 150/78; PULSE 71; TEMP 98.5
[2018-04-01 04:50] VITALS: BP 128/74; PULSE 71; TEMP 98.5
[2018-04-01 05:59] LABS: BASO % 0.1 % (0.0-2.0); GRAN # 12.5 (1.4-6.5); GRAN % 89.4 % (42.2-75.2); LYMPH # 1.1 (1.2-3.4); LYMPH % 7.6 % (20.0-51.0); MEAN CELL VOLUME 97 fl (80.0-100.0); MEAN CORPUSCULAR HGB CONC 32 g/dl (33.0-37.0); MEAN PLATELET VOLUME 10.5 fl (7.4-10.4); MONO # 0.3 (0.1-0.6); PLATELET COUNT 291 K/mm3 (130-400); REDCELL DISTRIBUTION WIDTH-CV 15.8 % (11.5-14.5)
[2018-04-01 06:15] LABS: ALBUMIN 2.5 gm/dL (3.5-5.0); CALCIUM 8.4 mg/dL (8.4-10.2); PHOSPHOROUS 8.6 mg/dL (2.5-4.5)
[2018-04-01 06:20] LABS: CREATININE, serum 8.28 mg/dL (0.52-1.25); HEMATOCRIT 26.2 % (37.0-47.0); HEMOGLOBIN 8.4 g/dl (12.5-16.0); MEAN CORPUSCULAR HEMOGLOBIN 31 pg (27.0-31.0)
--- NOTE | 2018-04-01 06:43 | NUR ---
Patient has rested well through the night. Minimal needs. Family remains in room. Sexton maintained to dependent drainage with clear pale yellow urine. ISABELL to bulb compression with blood tinged drainage present. Dressings remain CDI. SCDs to BLE. Critical K called to Dr. Meyers, orders entered TORB. Denies further needs at this time. Will report off to day shift.
[2018-04-01 07:24] VITALS: BP 118/72; PULSE 70; TEMP 98.1
--- NOTE | 2018-04-01 09:30 | NUR ---
Patient alert and oriented, answers questions appropriately. See assessment. Dialysis catheter in place to LIJ, no issues noted. Abdomen soft, non tender, non distended. Bowel sounds active x4 quads. Midline incision with dressing intact. ISABELL drain to LLQ with small amount of serosanginous drainage noted. Ostomy site pink and protruding. Small amount of bloody drainage noted in ostomy bag, no flatus. PCEA settings verified against MAR. Epidural catheter in place with no issues noted. No c/o numbness or tingling to BLE. No other c/o at this time.
[2018-04-01 17:21] VITALS: BP 124/66; PULSE 80; TEMP 98
[2018-04-01 21:00] VITALS: BP 123/71; PULSE 66; TEMP 98.2
--- NOTE | 2018-04-01 21:00 | NUR ---
Patient is in bed. Is alert and oriented x3. Has Left IJ dialysis catheter capped. Lung sounds diminished bilaterally, uses IS with encouragement. Has epidural catheter with continuous infusion of 8cc/hr with pain rating of 2/10. Lower midline incision open to air with juice intact. Ostomy with liquid drainage and ISABELL to bulb sx. Sexton to BSD with clear yellow urine. Has generalized edema with pitting edema to lower extremities, worse on the right. Wearing SCD's and doing foot pumps and exercises independently. Remains afebrile. PICC to right upper arm capped, both lumens flushed with blood return noted. Tolerating clear liquids, with 1000cc free water restriction. Patient offers no concerns at this time.
[2018-04-02 00:30] VITALS: BP 133/79; PULSE 71; TEMP 98.7
[2018-04-02 05:20] VITALS: BP 126/67; PULSE 60; TEMP 98.7
[2018-04-02 05:37] LABS: BASO % 0.2 % (0.0-2.0); EOS # 0.1 (0.0-0.7); EOS % 0.6 % (0-4.0); GRAN # 9.8 (1.4-6.5); GRAN % 77.6 % (42.2-75.2); LYMPH # 1.8 (1.2-3.4); LYMPH % 14.1 % (20.0-51.0); MEAN CELL VOLUME 96 fl (80.0-100.0); MEAN CORPUSCULAR HGB CONC 32 g/dl (33.0-37.0); MONO # 0.8 (0.1-0.6); MONO % 6.3 % (1.7-9.3); PLATELET COUNT 271 K/mm3 (130-400); RED BLOOD COUNT 2.51 M/mm3 (4.10-5.30); REDCELL DISTRIBUTION WIDTH-CV 15.8 % (11.5-14.5)
[2018-04-02 05:38] LABS: HEMATOCRIT 24.1 % (37.0-47.0); HEMOGLOBIN 7.7 g/dl (12.5-16.0); MEAN CORPUSCULAR HEMOGLOBIN 31 pg (27.0-31.0)
[2018-04-02 05:46] LABS: ALBUMIN 2.5 gm/dL (3.5-5.0); CALCIUM 8.3 mg/dL (8.4-10.2); PHOSPHOROUS 6.7 mg/dL (2.5-4.5); POTASSIUM 4.9 mmol/L (3.4-5.0)
--- NOTE | 2018-04-02 06:00 | NUR ---
Received call from lab reporting CR 6.00, this is down from 8.28 on 04/01/2018.
[2018-04-02 08:22] VITALS: BP 129/66; PULSE 64; TEMP 98
--- NOTE | 2018-04-02 09:23 | NUR ---
Pt continues to rest in bed. She is awake and A/Ox4. She denies pain at this time, states "I just put the button." Epidural infusing per orders. PICC line to right upper arm is free of complications. Sexton to DD is draining clear, yellow urine. Midline incision has small amount of serosanginous drainage noted, open to air. Lap site is free of complications. Colostomy bag has small amount of drainage. Pt states she wants to continue to rest, denies any other needs.
--- NOTE | 2018-04-02 11:32 | NUR ---
Pt is sitting in bed, visiting with family. She states her pain is well controlled with the epidural. Given hot tea upon request for sore throat, she reports is from surgery. Denies any other needs at this time.
[2018-04-02 11:50] VITALS: BP 154/90; PULSE 63; TEMP 98
--- NOTE | 2018-04-02 15:20 | NUR ---
Pt continues to rest in bed. Pt encouraged to move in bed, sit up etc. Pt used bed controls to sit up bed higher, states she does not think that she can go any higher due to increased pain. Mother at bedside, pt denies any needs.
[2018-04-02 16:46] VITALS: BP 166/86; PULSE 63; TEMP 97.8
--- NOTE | 2018-04-02 18:01 | NUR ---
Pt continues to rest in bed. Pt was encouraged to order supper, states she is going to. Will turn off epidural later this evening after pt has tolerated supper per Dr. Bear's order. Mother at bedside.
[2018-04-02 21:00] VITALS: BP 180/85; PULSE 60; TEMP 97.9
--- NOTE | 2018-04-02 22:00 | NUR ---
Patient reports tolerating diet, did not eat large amount. Takes Percocet (2) tabs at this time to prepare for stopping of the Epidural pump. Patient has not been out of bed since surgery and has been hesitant to turn in bed. Noted patient had wet linens and small blister beneath her ostomy bag, patient was educated on need for changing position and linens. With much effort and encouragement, patient was able to turn in the bed with assistance, shirley care given, Epidural dressing reinforced at the bottom of the dressing. ISABELL drain with serosanguinous drainage to bulb suction. Rafael to midline intact. Ostomy with liquid green drainage, some mucus noted with flatus in the bag, emptied 20cc. Patient did active leg ROM and SCD's were replaced. Has pitting edema to lower extremities, worse on the right. Patient tolerated activity well and was thankful afterwards.
--- NOTE | 2018-04-03 00:30 | NUR ---
HAS TOLERATED FOOD, TOOK ORAL PAIN MEDICATIONS 2 HOURS AGO WITH PAIN MANAGED AT 2/10. EPIDURAL PUMP STOPPED AT THIS TIME PER DOCTORS ORDERS.
[2018-04-03 00:54] VITALS: BP 150/69; PULSE 67; TEMP 98.2
--- NOTE | 2018-04-03 03:30 | NUR ---
Patient rating abdominal pain/burning 5/10, medicated with Percocet (2) tabs po at this time.
[2018-04-03 04:48] VITALS: BP 155/84; PULSE 56; TEMP 97.9
--- NOTE | 2018-04-03 05:10 | NUR ---
Lab work drawn from red lumen of right arm PICC line without problem. Patient still rating pain 5/10 to abdomen.
[2018-04-03 06:00] LABS: BASO % 0.4 % (0.0-2.0); EOS # 0.5 (0.0-0.7); EOS % 5.3 % (0-4.0); GRAN # 6.1 (1.4-6.5); GRAN % 63.5 % (42.2-75.2); HEMATOCRIT 23.6 % (37.0-47.0); HEMOGLOBIN 7.8 g/dl (12.5-16.0); LYMPH # 2.1 (1.2-3.4); LYMPH % 22.4 % (20.0-51.0); MEAN CELL VOLUME 94 fl (80.0-100.0); MEAN CORPUSCULAR HEMOGLOBIN 31 pg (27.0-31.0); MEAN CORPUSCULAR HGB CONC 33 g/dl (33.0-37.0); MEAN PLATELET VOLUME 10.2 fl (7.4-10.4); MONO # 0.7 (0.1-0.6); MONO % 7.6 % (1.7-9.3); PLATELET COUNT 249 K/mm3 (130-400); REDCELL DISTRIBUTION WIDTH-CV 15.5 % (11.5-14.5)
[2018-04-03 06:11] LABS: ALBUMIN 2.5 gm/dL (3.5-5.0); CALCIUM 8.2 mg/dL (8.4-10.2); PHOSPHOROUS 6.6 mg/dL (2.5-4.5); POTASSIUM 4.3 mmol/L (3.4-5.0)
[2018-04-03 06:52] LABS: CREATININE, serum 5.53 mg/dL (0.52-1.25)
[2018-04-03 07:23] VITALS: BP 161/93; PULSE 63; TEMP 97.6
--- NOTE | 2018-04-03 07:54 | NUR ---
Pt off to dialysis. Transported via wheel chair
--- NOTE | 2018-04-03 08:30 | NUR ---
Pt very anxious about dialysis, ativan PO. Pt refused to ambulate from bed to wheelchair. Pt then transported down to dialysis via bed.
[2018-04-03 11:45] VITALS: BP 130/77; PULSE 59; TEMP 97.3
--- NOTE | 2018-04-03 11:47 | NUR ---
GURINDER talked with Dr Rosas about patient. He reports he wants to do a 24 hour urine on patient to decide if he wants to continue dialysis or if her function has improved. GURINDER will continue to follow.
--- NOTE | 2018-04-03 11:59 | NUR ---
Follow up visit from the carpenter wooden tank erecting. No needs right now.
--- NOTE | 2018-04-03 13:30 | NUR ---
PICC intact right upper arm. With sterile technique right upper arm PICC dressing change done with insertion site cleansed with ChloraPrep 1, StatLock, skin prep, and Tegaderm applied. No signs or symptoms of IV complications noted. No concerns voiced. Arm wrapped with Jovany to protect catheter.
--- NOTE | 2018-04-03 14:59 | NUR ---
GURINDER and FAISAL talked with Dr Bear about a [facility] referral. After talking with patient they are ok with a referral being sent. GURINDER faxed clinical referral to Shahzad at [facility]. GURINDER talked with Janet in finance who will file a PMDT to have patients medicaid [place] filled quickly.
--- NOTE | 2018-04-03 15:34 | NUR ---
Patient is clinically appropriate for [facility]. THey will continue to follow to see when patient gets insurance.
[2018-04-03 17:11] VITALS: BP 160/87; PULSE 69; TEMP 98.1
--- NOTE | 2018-04-03 17:18 | NUR ---
Pt has refused turning, sitting up in bed, sitting on side of bed, and or ambulating in [place] 6 times today by staff members. Encouragment from family members has not motivated pt to ambulate. Pt has been refusing to wear SCDs also, but now there are being used. MD Chema aware of aforementioned.
[2018-04-03 20:12] VITALS: BP 159/82; PULSE 67; TEMP 98.4
--- NOTE | 2018-04-03 20:53 | NUR ---
Patient able to get herself to the edge of the bed and stand at the bedside with her walker, tolerates well. Lungs clear upper lobes, diminished lower lobes. ISABELL with serosanguinous drainage, to bulb suction. Colostomy with more soft stool in bag. Placed gauze dressing to left lap site due to leaking. Rafael intact to midline, open to air. Left IJ vascath capped. PICC to right arm capped. Percocet (2) tabs at this time for pain 3/10 to abdomen.
[2018-04-04 00:41] LABS: 12 HR URINE TOTAL VOLUME 1.2 L
[2018-04-04 03:34] VITALS: BP 158/108; PULSE 62; TEMP 98.2
[2018-04-04 04:21] VITALS: BP 154/84
--- NOTE | 2018-04-04 04:22 | NUR ---
BP recheck manually done was 154/84. Patient laying in bed, resting quietly.
--- NOTE | 2018-04-04 05:43 | NUR ---
Patient has shirley catheter on ice, 24hour urine collection in progress.
[2018-04-04 05:57] LABS: MEAN CELL VOLUME 95 fl (80.0-100.0); MEAN CORPUSCULAR HGB CONC 32 g/dl (33.0-37.0); MEAN PLATELET VOLUME 9.9 fl (7.4-10.4); PLATELET COUNT 258 K/mm3 (130-400); RED BLOOD COUNT 2.64 M/mm3 (4.10-5.30); REDCELL DISTRIBUTION WIDTH-CV 15.4 % (11.5-14.5)
[2018-04-04 05:58] LABS: MEAN CORPUSCULAR HEMOGLOBIN 30 pg (27.0-31.0)
[2018-04-04 06:22] LABS: ALBUMIN 2.5 gm/dL (3.5-5.0); CALCIUM 8.4 mg/dL (8.4-10.2); PHOSPHOROUS 5.7 mg/dL (2.5-4.5); POTASSIUM 4.1 mmol/L (3.4-5.0)
[2018-04-04 06:42] LABS: CREATININE, serum 4.15 mg/dL (0.52-1.25)
--- NOTE | 2018-04-04 06:50 | NUR ---
Lab called with Creatine of 4.15 this AM
[2018-04-04 07:23] LABS: BAND 1 % (0-10); BASOPHIL 1 % (0-2); EOSINOPHIL 8 % (0-4); LYMPHOCYTE 20 % (20.0-51.0); MYELOCYTE 1 % (0-0); NEUTROPHILS 63 % (42.0-75.2); PLATELET ESTIMATE NORMAL (NORMAL)
--- NOTE | 2018-04-04 08:00 | NUR ---
PATIENT IS DROWSY AND RESTING IN BED THIS MORNING WITH FAMILY PRESENT AT THE BEDSIDE. PATIENT IS A&O. VSS. BOWEL SOUNDS ACTIVE ALL FOUR QUADRANTS. PATIENT TOLERATING FOOD & LIQUIDS WITHOUT ANY COMPLAINTS OF N/V. MIDLINE ABDOMINAL INCISION HOT MILL SHEARER WITH JANICE INTACT. ABDOMINAL LEFT LAP SITE X1 DRESSED WITH GAUZE & TAPE AND IS CD&I. ISABELL INCISION SITE TO RIGHT SIDE ABDOMEN. ISABELL SUTURE INTACT. ISABELL DRAIN TO BULB COMPRESSION WITH SMALL AMOUNTS OF SEROSANGUINEOUS DRAINAGE PRESENT IN ISABELL BULB. ABDOMEN LUQ COLOSTOMY. STOMA RED, ROUND & BEEFY. SMALL AMOUNTS OF SOFT FORMED BROWN STOOL PRESENT IN COLOSTOMY BAG. COLOSTOMY WAFER AND BAG ARE CD&I. UPPER LUNG LOBES CLEAR UPON AUSCULTATION. LUNG BASES DIMINISHED BILATERALLY. PATIENT DENIES SHORTNESS OF BREATH OR A PRODUCTIVE COUGH. POSITIVE PEDAL PULSES EQUAL BILATERALLY. 3+ PITTING EDEMA TO BLE NOTED. SCD'S TO BLE. TAMAYO CATHETER TO DEPENDENT DRAINAGE WITH SMALL AMOUNTS OF CLEAR, PALE YELLOW URINE PRESENT IN TAMAYO BAG. 24 HOUR URINE COLLECTION IN PROGRESS. PICC LINE TO RUE. DIALYSIS CATHETER TO LEFT IJ. DIALYSIS CATHETER DRESSED WITH GAUZE AND IS CD&I. CALL LIGHT WITHIN REACH. BREAKFAST TRAY ORDERED. NO OTHER NEEDS AT THIS TIME. YELLOW
[2018-04-04 08:55] VITALS: BP 175/88; PULSE 65; TEMP 97
[2018-04-04 12:17] VITALS: BP 159/89; PULSE 70; TEMP 97.6
[2018-04-04 15:32] VITALS: BP 138/74; PULSE 71; TEMP 97.6
--- NOTE | 2018-04-04 16:45 | NUR ---
PATIENT UP TO THE CHAIR.
--- NOTE | 2018-04-04 19:14 | NUR ---
REPORT GIVEN TO MIKY KUMAR. PATIENT STILL SITTING UP IN THE CHAIR WAITING FOR DINNER TRAY. PATIENT DENIES ANY OTHER NEEDS AT THIS TIME.
--- NOTE | 2018-04-04 20:00 | NUR ---
Patient in chair resting, mother at bedside. Alert and oriented x3. Midline incision with juice intact, open to air. Lap site x1 with gauze dressing, drainage present. Blister also noted near lap site. Colostomy to left lower quadrent with soft stool present. ISABELL drain to right lower quadrent with serosanguinous fluid noted. Picc line to right upper arm without complications. HD catheter to left IJ. Edema +3 pitting, noted to BLE. Deminished lung sounds to bilateral bases. Sexton to dependent drainage with clear pale yellow urine present. Stand by assist for transfer to bed, SCDs to BLE. denies further needs at this time.
[2018-04-04 21:46] VITALS: BP 149/67; PULSE 66; TEMP 97.5
[2018-04-05 00:48] VITALS: BP 152/80; PULSE 65; TEMP 98.3
[2018-04-05 00:58] LABS: URINE TOTAL VOLUME 950 mL
[2018-04-05 01:00] LABS: CREATININE, serum 4.15 mg/dL (0.52-1.25)
[2018-04-05 01:14] LABS: URINE CREATININE CLEARANCE 7.6 mL/min (88-128)
[2018-04-05 04:31] VITALS: BP 151/81; PULSE 67; TEMP 98
--- NOTE | 2018-04-05 06:15 | NUR ---
Patient has rested well through the night. Minimal needs has requested pain medications through the night, given per orders. PICC to MELINA without complications. Denies further needs at this time. Will report off to day shift.
[2018-04-05 06:37] LABS: MEAN CELL VOLUME 93 fl (80.0-100.0); MEAN CORPUSCULAR HGB CONC 33 g/dl (33.0-37.0); MEAN PLATELET VOLUME 10.3 fl (7.4-10.4); PLATELET COUNT 249 K/mm3 (130-400); RED BLOOD COUNT 2.72 M/mm3 (4.10-5.30); REDCELL DISTRIBUTION WIDTH-CV 15.3 % (11.5-14.5)
[2018-04-05 06:39] LABS: HEMATOCRIT 25.4 % (37.0-47.0); HEMOGLOBIN 8.4 g/dl (12.5-16.0); MEAN CORPUSCULAR HEMOGLOBIN 31 pg (27.0-31.0)
[2018-04-05 06:48] LABS: ALBUMIN 2.4 gm/dL (3.5-5.0); CALCIUM 8.4 mg/dL (8.4-10.2); POTASSIUM 4.2 mmol/L (3.4-5.0)
[2018-04-05 06:51] LABS: CREATININE, serum 4.16 mg/dL (0.52-1.25)
[2018-04-05 06:58] LABS: PHOSPHOROUS 6.2 mg/dL (2.5-4.5)
[2018-04-05 09:22] LABS: BAND 1 % (0-10); EOSINOPHIL 7 % (0-4); LYMPHOCYTE 16 % (20.0-51.0); NEUTROPHILS 73 % (42.0-75.2); PLATELET ESTIMATE NORMAL (NORMAL)
[2018-04-05 09:46] VITALS: BP 154/82; PULSE 68; TEMP 98.1
--- NOTE | 2018-04-05 10:30 | NUR ---
Patient resting in bed. Dr. Rosas rounded. Plan of care reviewed, started 24 hr urine collection. Sexton drained & placed on ice. Patient plans to be more active today. 2 tabs percocet for pain in anticipation of activity. Patient midline abdominal incisions juice intact, open to air. ISABELL drain to bulb suction to RLQ. Dressing intact to LLQ lap site, christoph noted. Colostomy appliance intact with some output noted in bag. Scds. Edema noted BLe. Will tanior.
--- NOTE | 2018-04-05 11:55 | NUR ---
patient up and ambulated in hallsways, sitting up in chair now. Patient assisted with hygiene & fresh linens.
[2018-04-05 12:01] VITALS: BP 155/82; PULSE 72; TEMP 97.4
--- NOTE | 2018-04-05 13:12 | NUR ---
Patient sitting up in chair. IV antibioitc as ordered. Will report off to nurse to resume care
--- NOTE | 2018-04-05 14:25 | NUR ---
resting in recliner, c/o pain and medicated with percocet 5mg 2 tabs
--- NOTE | 2018-04-05 15:10 | NUR ---
remains up in chair and is eating light lunch
[2018-04-05 15:41] VITALS: BP 161/83; PULSE 70; TEMP 97.8
--- NOTE | 2018-04-05 17:16 | NUR ---
resting in bed, is very pleasant and cheerful this evening, denies needs
--- NOTE | 2018-04-05 18:05 | NUR ---
sitting up in bed preparing to eat supper
--- NOTE | 2018-04-05 18:11 | NUR ---
resting in bed has ordered something to eat, provided janie
--- NOTE | 2018-04-05 18:50 | NUR ---
medicated with percoet 5mg 2 tabs, bedside shift report given to Dorothy, RN
[2018-04-05 20:16] VITALS: BP 151/83; PULSE 67; TEMP 98.6
--- NOTE | 2018-04-05 20:30 | NUR ---
Patient up ambulating in hallway with staff, using walker and gait belt. Has shirley catheter to BSD. Left IJ dialysis catheter intact. Right upper arm PICC intact. ISABELL to bulb suction. Still having serous drainage from left lap site, ABD dressing covering. Taking Percocet (2) tabs every 4 hours for abdominal pain.
--- NOTE | 2018-04-05 21:00 | NUR ---
SPOKE WITH DR JOHN ABOUT LEAVING TAMAYO CATHETER IN UNTIL 24HR URINE COMPLETED. HE OKAYS TO LEAVE IN UNTIL 04/06/18 1000.
[2018-04-06 00:32] VITALS: BP 159/90; PULSE 64; TEMP 98.5
[2018-04-06 04:54] VITALS: BP 158/94; PULSE 64; TEMP 97
--- NOTE | 2018-04-06 06:00 | NUR ---
24 hour urine collection continues until 10am.
[2018-04-06 06:11] LABS: CALCIUM 8.4 mg/dL (8.4-10.2); POTASSIUM 3.9 mmol/L (3.4-5.0)
[2018-04-06 06:14] LABS: CREATININE, serum 3.99 mg/dL (0.52-1.25)
--- NOTE | 2018-04-06 06:30 | NUR ---
Left message for Dr Rosas to call for lab results.
[2018-04-06 08:52] VITALS: BP 152/75; PULSE 71; TEMP 98.9
--- NOTE | 2018-04-06 09:39 | NUR ---
Patient resting in bed. Patient glad about her good news, delayed tunneled cath procedure. Progress to renal diet. Patient motivate to ambulate halls. Patient shirley to DC after urine sent to lab. ISABELL to bulb suction, New dressing applied to LLQ serous output present. Staple present. Midline juice intact. Colostomy bag intact with stool present. Edema to BLE,Scds ble. Will monitor.
--- NOTE | 2018-04-06 09:57 | NUR ---
GURINDER contacted Janet in financial to see the status of patients Medicaid. She reports she will check on it when she gets back to the office.
[2018-04-06 10:33] LABS: CREATININE, serum 3.99 mg/dL (0.52-1.25)
[2018-04-06 10:34] LABS: URINE CREATININE CLEARANCE 15.2 mL/min (88-128); URINE TOTAL VOLUME 3375 mL
--- NOTE | 2018-04-06 10:43 | NUR ---
Patient ambulated the [facility] assist. Patient shirley removed. José Miguel boateng.
[2018-04-06 12:52] VITALS: BP 163/91; PULSE 70; TEMP 98.3
--- NOTE | 2018-04-06 13:16 | NUR ---
Patient sitting up in chair eating lunch. Her mother at bedside. Will monitor.
--- NOTE | 2018-04-06 17:52 | NUR ---
Patient resting in bed. Tod Manriquez ostomy nurse rounded, Patient was very involved in ostomy care. She is going to order dinner. Denies the need for pain medication at this time. Patient has been getting up and down to the bathroom independently,voiding adequately. Everardo outout has slowed. Midline juice intact. Picc to GEGE. Will report off to night nurse
[2018-04-06 18:37] VITALS: BP 175/73; PULSE 64; TEMP 97.7
[2018-04-06 19:43] VITALS: BP 153/87; PULSE 63; TEMP 99.5
--- NOTE | 2018-04-06 19:56 | NUR ---
Reports pain to abdomen 06/04. Medicated with Percocet 2 tabs at 1945. Is alert and oriented x4. Has ISABELL to right abdomen to bulb suction, sero-sanguinous drainage. Left abdomen with Colostomy showing soft stool. Left abdomen lap site with 2 juice has been leaking serous fluid, dressing intact. Voiding well since shirley dc'd today. Has 2-3+ pitting edema to bilateral lower legs/feet. Denies shortness of breath. Wants to walk in hallway later this PM.
--- NOTE | 2018-04-06 23:30 | NUR ---
Patient ambulating in hallway with walker, gait steady. Back to bed, takes Percocet 2tabs po for abdominal pain. Ready for sleep. ISABELL with 10cc serosanguinous fluid, emptied and placed back to bulb suction.
[2018-04-07 00:07] VITALS: BP 157/86; PULSE 67; TEMP 98.1
[2018-04-07 03:48] VITALS: BP 150/81; PULSE 87; TEMP 98.6
--- NOTE | 2018-04-07 04:44 | NUR ---
Complains of abdominal pain, medicated with Percocet 2 tabs at this time.
[2018-04-07 06:15] LABS: MEAN CELL VOLUME 92 fl (80.0-100.0); MEAN CORPUSCULAR HGB CONC 33 g/dl (33.0-37.0); MEAN PLATELET VOLUME 10.3 fl (7.4-10.4); PLATELET COUNT 229 K/mm3 (130-400); RED BLOOD COUNT 2.64 M/mm3 (4.10-5.30); REDCELL DISTRIBUTION WIDTH-CV 15.6 % (11.5-14.5)
--- NOTE | 2018-04-07 06:21 | NUR ---
Resting well since Percocet. Has been up during the night to void, urine clear yellow.
[2018-04-07 06:22] LABS: HEMATOCRIT 24.4 % (37.0-47.0); HEMOGLOBIN 8.1 g/dl (12.5-16.0); MEAN CORPUSCULAR HEMOGLOBIN 31 pg (27.0-31.0)
[2018-04-07 06:24] LABS: ALBUMIN 2.5 gm/dL (3.5-5.0); CALCIUM 8.4 mg/dL (8.4-10.2); CREATININE, serum 3.71 mg/dL (0.52-1.25); PHOSPHOROUS 5.8 mg/dL (2.5-4.5); POTASSIUM 3.8 mmol/L (3.4-5.0)
[2018-04-07 06:54] LABS: BAND 4 % (0-10); EOSINOPHIL 7 % (0-4); LYMPHOCYTE 22 % (20.0-51.0); NEUTROPHILS 63 % (42.0-75.2); PLATELET ESTIMATE NORMAL (NORMAL)
[2018-04-07 08:05] VITALS: BP 131/70; PULSE 71; TEMP 98.1
--- NOTE | 2018-04-07 10:06 | NUR ---
Patient ambulated down the hallway independently without the walker & did well. aware of lab results & no longer plans for tunneled cath. Patient going to eat breakfast of nepro & applesauce. Spoke Dr. Serna he is going to try to work on switching patient to po antibioitcs. José Miguel boateng
--- NOTE | 2018-04-07 10:50 | NUR ---
Patient resting in bed. Dr. Rosas removed Dialysis cathetor. Pressure was applied & dressing intact. Patient very glad with the good news.
--- NOTE | 2018-04-07 11:01 | NUR ---
GURINDER talked with Dr Rosas who reports he feels patient will be ready for dc tomorrow. Nurse reports they are switching to oral antibiotics.
[2018-04-07 11:29] VITALS: BP 124/70; PULSE 80; TEMP 97.8
--- NOTE | 2018-04-07 12:09 | NUR ---
First visit from the investigator fraud. No needs right now.
--- NOTE | 2018-04-07 12:40 | NUR ---
Patient video chatting with family. Po antibioitc. He supportive mother remains at bedside, jocelyne boateng
[2018-04-07 15:18] VITALS: BP 140/82; PULSE 68; TEMP 98.3
[2018-04-07] MEDS ORDERED: AMOXICILLIN 8751 TAB PO (15:24)
[2018-04-07] MEDS ORDERED: PERCOCET 325 MG1 TA2 PO (15:24)
[2018-04-07] MEDS ORDERED: TYLENOL 500MG500 MG PO (15:25)
--- NOTE | 2018-04-07 18:00 | NUR ---
Patient resting in bed. She ambulated halls this afternoon. Patient did empty her own colostomy bag this afternoon with encouragement. Her family at bedside. They are going to order pizza. Dr. Bear rounded this afternoon, plan of care reviewed, patient nervous about discharge, but positive reenforcement given. Will report off to night nurse
[2018-04-07 19:37] VITALS: BP 158/75; PULSE 72; TEMP 98
--- NOTE | 2018-04-07 21:00 | NUR ---
Patient resting in bed at this time, family at bedside. Patient is alert and oriented, answers questions appropriately. Patient has ambulated in the halls once this shift independenly, family accompanying. Patient does request PRN pain medication once she returns to room, states she will ask for her scheduled ambien when she is ready. Dressing to left neck from dialysis port removal is CDI. PICC in RUE is intact, no s/s of infection. Midline incision is WA, juice intact, no drainage apparent. ISABELL drain site is CDI, gauze drain sponge in place, small amount of serosanguinous drainage in bulb. Lap site to left abdomen does have some drainage. Previous drain site to left buttock is scabbed and dry. Patient denies further needs at this time, call light within reach.
[2018-04-08 04:25] VITALS: BP 121/58; PULSE 80; TEMP 98.6
[2018-04-08 07:24] VITALS: BP 135/74; PULSE 95; TEMP 98
--- NOTE | 2018-04-08 08:59 | NUR ---
Pt alert and oriented. Pt rates abdominal pain 5/10. Lap site serous drainage small amount. Pt given PRN Percocet for pain management. Pt ISABELL drain site CDI and patent. Colostomy bag has soft brown bowel noted. Pt midline site sutures intact and CDI. Pt has family at bedside and will order breakfast soon. Pt has call light in reach.
[2018-04-08 09:08] LABS: BASO % 0.4 % (0.0-2.0); EOS # 0.5 (0.0-0.7); GRAN # 3.9 (1.4-6.5); GRAN % 57.8 % (42.2-75.2); LYMPH # 1.6 (1.2-3.4); LYMPH % 23.6 % (20.0-51.0); MEAN CELL VOLUME 95 fl (80.0-100.0); MEAN CORPUSCULAR HGB CONC 32 g/dl (33.0-37.0); MEAN PLATELET VOLUME 10.4 fl (7.4-10.4); MONO # 0.6 (0.1-0.6); PLATELET COUNT 220 K/mm3 (130-400); RED BLOOD COUNT 2.49 M/mm3 (4.10-5.30); REDCELL DISTRIBUTION WIDTH-CV 15.6 % (11.5-14.5)
[2018-04-08 09:20] LABS: ALBUMIN 2.5 gm/dL (3.5-5.0); CALCIUM 8.3 mg/dL (8.4-10.2); CREATININE, serum 3.31 mg/dL (0.52-1.25); PHOSPHOROUS 6.1 mg/dL (2.5-4.5); POTASSIUM 3.7 mmol/L (3.4-5.0)
[2018-04-08 09:53] LABS: HEMATOCRIT 23.6 % (37.0-47.0); HEMOGLOBIN 7.5 g/dl (12.5-16.0); MEAN CORPUSCULAR HEMOGLOBIN 30 pg (27.0-31.0)
[2018-04-08 11:01] VITALS: BP 137/63; PULSE 77; TEMP 98.3
--- NOTE | 2018-04-08 12:30 | NUR ---
ISABELL drain to RLQ removed with no complications per doctors order, 2x2 and tegaderm applied to site. Ostomy wafer and pouch changed per patient request, patient refuses to change pouch for return demonstration at this time. PICC to RAC removed with no complications, pressure applied for five minutes, 2x2 and tegaderm applied, patient instructed to remain in bed for thirty minutes following PICC removal.
--- NOTE | 2018-04-08 14:31 | NUR ---
Discharge instructions reviewed with patient and family, verbalized understanding. Discharged via wheelchair to auto/home with family at 1430.
== END 2018-04-08 14:30 | disposition home or self-care (01) | DRG 853 ==
LOC: SURG 19:15
PROVIDERS: Hospitalist; Internal Medicine; Internal Medicine Nephrology; Nurse Practitioner Family; Physician Assistant; Surgery; ADMIT Surgery
PROC: 0W9H30Z Drainage of Retroperitoneum with Drainage Device, Percutaneous Approach (ICD-10-PCS; principal; 2018-03-14)
PROC: 02HV33Z Insertion of Infusion Device into Superior Vena Cava, Percutaneous Approach (ICD-10-PCS; 2018-03-26)
PROC: 5A1D70Z Performance of Urinary Filtration, Intermittent, Less than 6 Hours Per Day (ICD-10-PCS; 2018-03-26)
PROC: 5A1D70Z Performance of Urinary Filtration, Intermittent, Less than 6 Hours Per Day (ICD-10-PCS; 2018-03-27)
PROC: 5A1D70Z Performance of Urinary Filtration, Intermittent, Less than 6 Hours Per Day (ICD-10-PCS; 2018-03-29)
PROC: 0DTN0ZZ Resection of Sigmoid Colon, Open Approach (ICD-10-PCS; 2018-03-31 14:30)
PROC: 0D1N0Z4 Bypass Sigmoid Colon to Cutaneous, Open Approach (ICD-10-PCS; 2018-03-31 14:30)
PROC: 0WJP4ZZ Inspection of Gastrointestinal Tract, Percutaneous Endoscopic Approach (ICD-10-PCS; 2018-03-31 14:30)
PROC: 5A1D70Z Performance of Urinary Filtration, Intermittent, Less than 6 Hours Per Day (ICD-10-PCS; 2018-04-01)
PROC: 5A1D70Z Performance of Urinary Filtration, Intermittent, Less than 6 Hours Per Day (ICD-10-PCS; 2018-04-03)
DX: A41.9 Sepsis, unspecified organism (principal); N17.0 Acute kidney failure with tubular necrosis; K57.20 Diverticulitis of large intestine with perforation and abscess without bleeding; E87.1 Hypo-osmolality and hyponatremia; L03.115 Cellulitis of right lower limb; F17.210 Nicotine dependence, cigarettes, uncomplicated; E87.6 Hypokalemia; B95.4 Other streptococcus as the cause of diseases classified elsewhere; B96.20 Unspecified Escherichia coli [E. coli] as the cause of diseases classified elsewhere; E83.51 Hypocalcemia; F10.10 Alcohol abuse, uncomplicated; E83.39 Other disorders of phosphorus metabolism; T36.8X5A Adverse effect of other systemic antibiotics, initial encounter; E87.5 Hyperkalemia; F41.0 Panic disorder [episodic paroxysmal anxiety]
CPT/HCPCS: 99223; 99231-AI; 99232-AI; 99233-AI; A4216; A4314; A9284; C1729; C1751; C1765; J0881; J1100; J1170; J1450; J1644; J1940; J1956; J2185; J2250; J2405; J2543; J2704; J2916; J2997; J3010; J3370; J7030; J7040; J7120; P9016; Q9967